=== PATIENT | female | born 1950 | race Caucasian/White ===

== ENCOUNTER 2016-12-29 15:11 | Inpatient (IN) | payer OTHER ==
--- NOTE | ~2016-12-29 | EKG ---
PATIENT: RACHEAL DUQUE UNIT #: [id number] Ventricular Rate: 167 BPM Atrial Rate: 166 BPM P-R Interval: 168 ms QRS Duration: 64 ms Q-T Interval: 272 ms QTC Calculation(Bezet): 453 ms P [place]: 80 degrees Calculated R [place]: -44 degrees Calculated T [place]: 78 degrees Diagnosis Line: Atrial fibrillation Diagnosis Line: Left axis deviation Diagnosis Line: Nonspecific ST abnormality Diagnosis Line: Abnormal ECG Diagnosis Line: No previous ECGs available Diagnosis Line: Confirmed by CARA MULLIGAN MD ([id number]) on Diagnosis Line: 01/01/2017 9:49:00 AM INTERPRETING MD: LENNOX
--- NOTE | ~2016-12-29 | EKG ---
PATIENT: RACHEAL DUQUE UNIT #: [id number] Ventricular Rate: 98 BPM Atrial Rate: 98 BPM P-R Interval: 130 ms QRS Duration: 64 ms Q-T Interval: 354 ms QTC Calculation(Bezet): 451 ms P [place]: 48 degrees Calculated R [place]: -23 degrees Calculated T [place]: 10 degrees Diagnosis Line: Normal sinus rhythm with sinus arrhythmia Diagnosis Line: Low voltage QRS Diagnosis Line: Borderline ECG Diagnosis Line: When compared with ECG of 29-DEC-2016 20:34, Diagnosis Line: (unconfirmed) Diagnosis Line: rhythm now sinus Diagnosis Line: ST no longer depressed in Anterior leads Diagnosis Line: Nonspecific T wave abnormality, improved in Diagnosis Line: Inferior leads Diagnosis Line: Nonspecific T wave abnormality no longer evident Diagnosis Line: in Lateral leads Diagnosis Line: Confirmed by CARA MULLIGAN MD ([id number]) on Diagnosis Line: 01/01/2017 9:53:25 AM INTERPRETING IWONA HIGH
--- NOTE | ~2016-12-29 | HP ---
Unit #: [id number] #: [id number] Patient: RACHEAL DUQUE [id number] [address] [place], [place] [address] [id number] E MR#: [id number] NAME: RACHELA DUQUE ROOM: Age: 66 Sex: F Admission Date: 12/29/2016 : 1950 Attending Physician: Shad Deleon M.D. Primary Care Physician: No Primary Care Physician HISTORY AND PHYSICAL CHIEF COMPLAINT Swollen painful right leg. HISTORY OF PRESENT ILLNESS The patient is a 66-year-old female with the history of a left leg DVT back in 2010, status post anticoagulation for six months and stopped for the bleeding. The patient presented to the emergency room with right lower leg extremity for three days and associated with the redness, edema and warmth. The pain is more worrisome with the movement. The patient denies any trauma or any recent travel history. The patient had a venous Doppler that showed diffuse centrally occluded DVT and is being admitted for the anticoagulation. PAST MEDICAL HISTORY History of a left leg DVT back in 2010. PAST SURGICAL HISTORY None. HOME MEDICATIONS Noncompliant with all the meds, BP meds, cholesterol meds, gabapentin, trazodone. Currently no home meds. ALLERGIES No known drug allergies. SOCIAL HISTORY Smokes half a pack per day and drinks alcohol occasionally and denies any illicit drug abuse. FAMILY HISTORY Reviewed and none. REVIEW OF SYMPTOMS Fourteen-point review of symptoms performed and only pertinent positive findings are described above, remaining are negative. PHYSICAL EXAMINATION GENERAL APPEARANCE: On examination the patient is lying on a bed not in acute distress. VITAL SIGNS: Temperature 98.2, pulse 103, respiratory rate 21, blood pressure 131/70, sating 97% at room air. HEENT: Head atraumatic/normocephalic. Pupils equal, round and reacting Unit #: [id number] #: [id number] Patient: RACHEAL DUQUE to light and accommodation. Extraocular movements are intact. NECK: Supple. LUNGS: Decreased air entry at the bases. HEART: Regular rate and rhythm. ABDOMEN: Soft, positive bowel sounds. EXTREMITIES: Right lower extremity diffuse tenderness and the edematous and the warmth and redness. NEUROLOGIC: Alert, awake, oriented. No gross focal motor deficit. DIAGNOSTIC STUDIES LABORATORY DATA: WBC 9.9, hemoglobin 11.9, hematocrit 35.9, platelets 296, glucose 91, BUN 9, creatinine 0.8, sodium 137, potassium 3.6, chloride 99, bicarb 25, calcium 8.5, albumin 2.8, AST 77, ALT 27, alkaline phosphatase 153, INR is 1. IMAGING: The venous Doppler is positive for the diffuse centrally occluded DVT. ASSESSMENT 1. Deep venous thrombosis. 2. Anemia. PLAN Plan to admit the patient to the inpatient. Patient will have anticoagulation with the Lovenox plus Coumadin and transition to Coumadin and check the alcohol and urine toxicology level and monitor the INR to keep the range between 2 and 3 and will have the case management involvement for the assistance for the Lovenox and further recommendations will follow. Dictated by Margie Gordon/sherita TD: 12/29/2016 19:29 JOB #: [id number] HISTORY AND PHYSICAL Page 1 of 1 X LIZZ VIVAS MD X HISTORY AND PHYSICAL
--- NOTE | ~2016-12-29 | CO ---
Unit #: [id number] #: [id number] Patient: RACHEAL BENTON [id number] [id number] [facility]. [place], [place] [address] [id number] I MR#: [id number] NAME: RACHEAL BENTON ROOM: 560 Age: 66 Sex: F Admission Date: 12/29/2016 : 1950 Attending Physician: Marleny Smith M.D. Consultation Date: 12/30/2016 CONSULTATION REPORT REASON FOR CONSULTATION New atrial fibrillation with rapid ventricular response. HISTORY OF PRESENT ILLNESS This is a 66-year-old white female with a history of DVT back in 2010 and had a probable IVC filter placed at that time at [facility]. The patient said that a few weeks after she was on Coumadin, she had a lower GI bleed. They put the filter in and took off her Coumadin. She also has a history of being noncompliant with her medications, nicotine and alcohol abuse. She reports that she has had medication for hypertension in the past and also for hyperlipidemia. The patient presented to the emergency room with increased swelling, pain, and redness in the right lower extremity. Doppler study showed that she does have a right DVT. The patient was given a dose of Lovenox after she was admitted in the emergency room. The patient's telemetry showed atrial fibrillation. An EKG was done to confirm it. The ER physician started her on Cardizem drip at 5 mg/hr and gave her a dose of 2.5 mg of IV Lopressor. The patient converted back to normal sinus rhythm. It was noted that also her magnesium was 1.3 and potassium 3.3 and that was supplemented. Cardiology has been consulted to assist with evaluation and management. According to the patient, she has never been told she had any heart issues. She may have had a stress test, but has never had anything recently. She never has been told she has had a stroke or heart attack. The patient denies any chest pain; pain in her neck, bilateral jaws, shoulders, arms, or elbow. She reports she does have occasional palpitation, but it only lasts a few minutes. She denies any increased lower extremity edema. Denies any nausea, vomiting, or diarrhea. She said she may have been having occasional chills, but no fever. She has a dry cough. She denies any presyncope or syncope. The patient was admitted for further evaluation. PAST MEDICAL HISTORY 1. History of DVT in 2010, has a probable IVC filter done at [facility] in 2010. 2. Hypertension. 3. Hyperlipidemia. 4. Noncompliance with medication. 5. Nicotine abuse. 6. Alcohol abuse. HOME MEDICATIONS None. ALLERGIES Unit #: [id number] #: [id number] Patient: RACHEAL BENTON No known drug allergies. SOCIAL HISTORY The patient lives in her apartment. She ambulates in her apartment without any cane or walker, but she does have for if she needs them. She continues to smoke a half to a pack of cigarettes a day, has been smoking since age 22. She drinks 2 to 3 shots of whiskey daily. No illicit drug abuse. FAMILY HISTORY Her father in an accident, and her mother is still living and has known coronary artery disease. Her siblings, she is unaware of any health problems. REVIEW OF SYSTEMS See details in HPI. PHYSICAL EXAMINATION GENERAL: Ms. Benton is a 66-year-old white female, in no acute respiratory distress. She is awake and alert. Answers most questions appropriately. VITAL SIGNS: Currently, blood pressure is 131/70 and after the Cardizem and Lopressor were given, her blood pressure dropped to 95/68, but currently blood pressure 114/64; heart rate 100; respirations 18; temperature 98.8; O2 saturations 98% on room air. NECK: Trachea midline. No thyromegaly or lymphadenopathy. Normal carotid upstrokes. No jugular venous distention. HEART: S1 and S2. Regular rate and rhythm. Soft systolic murmur in the left sternal border. LUNGS: Diminished, otherwise clear. ABDOMEN: Soft. Tender with palpating the mid epigastric area. EXTREMITIES: Pedal pulses are very weak, especially in the right. Her lower extremity from the knee down is edematous and has some cellulitis. It is painful to touch. NEUROLOGIC: No deficits. DIAGNOSTIC STUDIES LABORATORY RESULTS: Her glucose is 100, BUN 9, creatinine 0.5, eGFR is 99.5, sodium 138, potassium 3.3, chloride 101, CO2 of 25, calcium is 7.9, magnesium is 1.3, total protein 6.3, albumin 2.8, bilirubin total 1.0, AST 17, ALT is 27, alkaline phosphatase is 153. Her TSH is 4.01, free T4 is 0.91. WBCs 7.7, hemoglobin 10.6, hematocrit 32.5, and platelets are 274. Initial cardiac enzymes; CK-MB is 1.5, troponin less than 0.05. Repeat cardiac enzymes; troponin less than 0.03. Urine tox screen is negative. Urinalysis shows 1+ leukocyte esterase, positive nitrites, 1+ protein, 2.0 urobilinogen, 5 to 10 rbc's, 5 to 10 wbc's, and 4+ bacteria. Urine culture is pending. Alcohol level 145. IMAGING STUDIES: Right leg venous Doppler study showed essential occlusive DVT in the right leg. CARDIOVASCULAR STUDIES: EKG on admission showed atrial fibrillation with Unit #: [id number] #: [id number] Patient: RACHEAL BENTON rapid ventricular response, ventricular rate 167 beats per minute, left axis deviation, inferior Q-waves, and poor R-wave progression. Later EKG after converted back to normal sinus rhythm shows normal sinus rhythm with ventricular rate 98 beats per minute. Inferior infarct, age undetermined. T-wave in V1. Poor R-wave progression. IMPRESSION 1. Right leg pain. Positive for right deep venous thrombosis with a history of left deep venous thrombosis back in 2010. Had an IVC filter placed. 2. Anemia. 3. History of lower gastrointestinal bleed, on Coumadin in 2010. 4. Hypertension. 5. Hyperlipidemia. 6. Alcohol abuse. 7. Nicotine abuse. 8. Noncompliance. PLAN 1. The patient currently remains in normal sinus rhythm after IV Cardizem. We will check thyroid and evaluate. We will obtain a 2D echo to evaluate LV function and valves. Cause of atrial fibrillation could be secondary to electrolyte imbalance. Potassium and magnesium were noted and replaced. 2. As far as anticoagulation, start the patient on 1 mg/kg dose of subcu Lovenox for anticoagulation. The hospitalist has asked Hematology to follow the patient to make sure there is no bleeding disorder that would cause these clots. Discussed with the patient the need to be on heparin. The patient verbalizes understanding, but just somewhat disappointed. We will keep the patient on a low-dose beta-concepcion to maintain normal sinus rhythm. Encourage the patient to completely quit smoking and nicotine abuse. 3. Further recommendations pending. 4. Hospitalist has asked Hematology to see the patient to evaluate for any hematological cause for recurrent DVTs. Thank you very much for allowing us to assist in the care. Dictated by... Grisel Wei A.P.R.N. for Margie Portillo/alf TD: 12/31/2016 00:05 JOB #: [id number] CONSULTATION REPORT Page 1 of 1 X Grisel Wei PROFESSOR OF [employer] X CONSULTATION REPORT
--- NOTE | ~2016-12-29 | EKG ---
PATIENT: RACHEAL DUQUE UNIT #: [id number] Ventricular Rate: 102 BPM Atrial Rate: 102 BPM P-R Interval: 130 ms QRS Duration: 58 ms Q-T Interval: 344 ms QTC Calculation(Bezet): 448 ms P [place]: 52 degrees Calculated R [place]: -39 degrees Calculated T [place]: 90 degrees Diagnosis Line: Sinus tachycardia Diagnosis Line: Possible Left atrial enlargement Diagnosis Line: Left axis deviation Diagnosis Line: Low voltage QRS Diagnosis Line: Inferior infarct (cited on or before 05-JUL-2015) Diagnosis Line: Abnormal ECG Diagnosis Line: When compared with ECG of 30-DEC-2016 20:21, Diagnosis Line: (unconfirmed) Diagnosis Line: ST no longer depressed in Inferior leads Diagnosis Line: Nonspecific T wave abnormality no longer evident Diagnosis Line: in Inferior leads Diagnosis Line: Nonspecific T wave abnormality now evident in Diagnosis Line: Lateral leads Diagnosis Line: Confirmed by CARA MULLIGAN MD ([id number]) on Diagnosis Line: 01/01/2017 1:43:06 PM INTERPRETING MD: LENNOX
--- NOTE | ~2016-12-29 | DS ---
Unit #: [id number] #: [id number] Patient: RACHEAL DUQUE [id number] [address] [address] [id number] I MR#: [id number] NAME: RACHEAL DUQUE ROOM: 560 Age: 66 Sex: F Admission Date: 12/29/2016 : 1950 Discharge Date: Attending Physician: Marleny Smith M.D. Primary Care Physician: No Primary Care Physician DISCHARGE SUMMARY DISCHARGE DIAGNOSES 1. Acute right leg deep venous thrombosis. 2. Atrial fibrillation, currently in normal sinus rhythm. 3. History of gastrointestinal bleed. 4. Diarrhea, chronic. 5. Hypokalemia. 6. Smoking. 7. Moderate protein malnutrition. 8. Anemia, iron deficiency, no active bleeding. 9. Urinary tract infection. 10. Cultures negative. 11. Chronic diastolic heart failure. 12. Noncompliance. 13. Alcohol abuse. 14. Hyperlipidemia. CONSULTATIONS Dr. Nina and Dr. Howard. PROCEDURES None. DIAGNOSTIC STUDIES LABORATORY: Sodium 139, potassium 4.0, creatinine 0.9, AST 79, ALT 27, alkaline phosphatase 121, total protein 5.2, total bilirubin 0.2, albumin 2.4. INR 6.5, WBC 6.8, hemoglobin 10.3, platelets 349. Urine cultures show mixed growth. Alcohol level is 145. Urine drug screen negative. IMAGING: Ultrasound of the extremity shows diffuse essentially occlusive DVT right leg. ALLERGIES None. DISCHARGE MEDICATIONS 1. Amiodarone 200 mg p.o. daily. 2. Nicotine 21 mg transdermal daily. 3. Coumadin 1 mg p.o. daily. 4. Lopressor 12.5 mg p.o. b.i.d. 5. Multivitamin one tab daily. 6. Thiamine 100 mg daily. HOSPITALIZATION COURSE A 66-year-old admitted because of right leg swelling and pain. Unit #: [id number] #: [id number] Patient: RACHEAL DUQUE Acute right leg DVT: Etiology unclear. Patient seen by Dr. Nina. Anticoagulation workup is pending. The patient is started on Lovenox. Currently, the patient is on Coumadin. INR 6.5. Hold Coumadin today. Continue with 1 mg. The patient will have home health recheck PT and INR. Coumadin dose as per PT and INR. Atrial fibrillation: Acute. Currently, normal sinus rhythm. The patient is on amiodarone and Lopressor, rate control. History of GI bleed: Currently, no active bleeding. Anemia secondary to acute iron deficiency: No active bleeding. Urinary tract infection: Cultures negative. Patient received Rocephin. Discharge home with home health. Follow with the PCP in one week's time. Follow with Dr. Nina in two to three weeks' time. The patient will have Coumadin started on 01/05/2017. Target goal INR is 2 to 3. I discussed with Dr. Nina. Okay to discharge the patient and to follow with him. Discharge time taken is 33 minutes. Dictated by... Margie Henry/anai TD: 01/03/2017 13:20 JOB #: [id number] DISCHARGE SUMMARY Page 1 of 1 X Marleny Smith MD X DISCHARGE SUMMARY
--- NOTE | ~2016-12-29 | EKG ---
PATIENT: RACHEAL DUQUE UNIT #: [id number] Ventricular Rate: 89 BPM Atrial Rate: 89 BPM P-R Interval: 128 ms QRS Duration: 56 ms Q-T Interval: 370 ms QTC Calculation(Bezet): 450 ms P [place]: 57 degrees Calculated R [place]: -28 degrees Calculated T [place]: 11 degrees Diagnosis Line: Normal sinus rhythm Diagnosis Line: Consider prior inferior infarct by series (cited Diagnosis Line: on or before 05-JUL-2015) Diagnosis Line: Borderline ECG Diagnosis Line: When compared with ECG of 30-DEC-2016 07:42, Diagnosis Line: (unconfirmed) Diagnosis Line: No significant change was found Diagnosis Line: Confirmed by CARA MULLIGAN MD ([id number]) on Diagnosis Line: 01/01/2017 1:15:17 PM INTERPRETING MD: LENNOX
--- NOTE | ~2016-12-29 | CO ---
Unit #: [id number] #: [id number] Patient: RACHEAL DUQUE [id number] [address] [place], [place] [address] [id number] I MR#: [id number] NAME: RACHEAL DUQUE ROOM: 560 Age: 66 Sex: F Admission Date: 12/29/2016 : 1950 Attending Physician: Marleny Smith M.D. Consultation Date: 12/30/2016 CONSULTATION REPORT PRIMARY CARE PHYSICIAN Shad Deleon REASON FOR CONSULT Right-sided DVT, please evaluate. HISTORY OF PRESENT ILLNESS A 66-year-old lady who had a left-sided DVT in 2010 took warfarin for six months and had internal bleeding of which we do not have the records, but she had an IVC filter placed, and anticoagulation was discontinued, presents now with a diffuse, symptomatic right DVT and no evidence of PE. We were requested to evaluate. Today, on questioning she states that she is reluctant about warfarin. She cannot afford Lovenox. She does not want to take Eliquis or Xarelto because she cannot afford it, and our suggestion was that she definitely needs anticoagulation and either we keep her on Lovenox, or she needs to go on one of the orals with Lovenox support or go onto Xarelto or Eliquis which she states that she definitely cannot afford. PAST MEDICAL HISTORY Left-sided DVT in 2010 with IVC filter. We do not have the records. It was at [facility]. FAMILY HISTORY Very positive for DVT and PE in a son, and the son . Otherwise, no other member of the family has clots as far as she knows. SOCIAL HISTORY Smokes half a pack a day, occasional alcohol, and no drugs. ALLERGIES No known allergies. CHRONIC MEDICATIONS Multiple but she is not taking many and states that she does not have a ride around either, but she used to take cholesterol medicines, blood pressure medicines, gabapentin, and trazodone. REVIEW OF SYSTEMS Pain in her right leg, fairly severe, sometimes sharp, sometimes dull. Appetite fair. Performance status decreased. May have lost some weight but is not sure. Otherwise, eight or 10 systems are within normal limits. PHYSICAL EXAMINATION Unit #: [id number] #: [id number] Patient: RACHEAL DUQUE GENERAL: She looks much older than stated age. LYMPHATICS: No palpable nodes. LUNGS: Clear. CARDIOVASCULAR: Distant S1 and S2. ABDOMEN: Scaphoid. No organomegaly. CENTRAL NERVOUS SYSTEM: Grossly intact. PELVIC/BREASTS: Exams were not done. EXTREMITIES: Left leg normal to exam. Right leg with 2+ edema and tenderness all the way up to the thigh. DIAGNOSTIC STUDIES LABORATORY: Glucose 100, BUN 9, creatinine 0.5, sodium 138, potassium 3.3, chloride 101, CO2 of 25, calcium 7.9, magnesium 1.3, total protein 6.3, and albumin of 2.8. Pro time 10 and INR 1. Hemoglobin 10.6, hematocrit 32.5, white count 7700, and platelets 274,000. IMAGING: CT angiogram shows no evidence of clot formation. Ultrasound of the right leg shows diffuse essentially occlusive DVT in the right leg. ASSESSMENT AND PLAN So at this point, I had a long discussion with the patient who is reluctant about any anticoagulation, but I told her that this symptomatic, diffuse, extensive DVT with IVC filter is not going to go away unless we anticoagulate, and it is up to her, her choice of Lovenox, warfarin, Eliquis, Xarelto, or other orals. The cost of each was explained to her. She is reluctantly agreeing to go back on warfarin for a minimum of three months, although I believe this lady with recurrent DVT should be on anticoagulation for life if she continues to smoke. All this was discussed in detail. Then, I told her that I am going to start her on warfarin, continue the Lovenox, and we are going to check some basic labs which will include factor V Leiden, prothrombin gene mutation, lupus anticoagulant, anticardiolipin, antiphospholipid antibodies, D-dimer, and PT-INR, to tell her what other risk factors she has for clotting. She is in agreement. Will start warfarin at 5 mg p.o. daily and daily PT-INR. Dictated by... Margie Justin/rajiv TD: 12/30/2016 19:48 JOB #: [id number] CONSULTATION REPORT Page 1 of 1 X Mendoza Nina MD CONSULTATION REPORT
--- NOTE | ~2016-12-29 | US85 ---
[facility] A Service of [facility] & [facility] RADIOLOGY TEXT RESULTS PATIENT: RACHEAL DUQUE LOCATION: [facility] [address]-00 : [birth year] UNIT #: [id number] AGE: [address]: LIZZ LESTER MD SEX: F ORDER DR: [id number] [facility] [address] [place], [place] [address] [id number] I MR#: [id number] Acc #: [id number] NAME: RACHEAL DUQUE : 1950 SEX: F STUDY DATE/TIME: 12/29/2016 16:08 UNIT: [facility] ROOM: [id number] STUDY DESCRIPTION: US LE Veins Unilat or Ltd Stdy Attending Physician: Lizz Lester M.D. Ordering Physician: Shad Deleon M.D. Primary Care Physician: No Primary Care Physician MEDICAL IMAGING REPORT This report is preliminary unless electronic signature is present EXAM Right leg vein Doppler 12/29/16 INDICATIONS Pain and swelling in the right leg for the last 3 days. Prior history of DVT. FINDINGS Garcia-scale, color flow, spectral Doppler waveform analysis was performed of the right leg venous system. There is a diffuse deep venous thrombosis in the right lower extremity with the exception of one of the paired anterior tibial veins which appears patent. The majority of thrombus is occlusive. The saphenous vein is patent. IMPRESSION Diffuse essentially occlusive DVT in the right leg. Dictated by... Rohan Ballesteros Jr., M.D. THIS IS AN ELECTRONICALLY VERIFIED REPORT Rohan Ballesteros Jr., M.D. at 12/30/2016 5:54 AM BIRDIE/johnathan TD: 12/29/2016 22:44 JOB #: [id number] MEDICAL IMAGING REPORT Page 1 of 1 COPY
--- NOTE | ~2016-12-29 | CT16 ---
[facility] A Service of [facility] RADIOLOGY TEXT RESULTS PATIENT: RACHEAL DUQUE LOCATION: C5B 560-01 : 46 UNIT #: [id number] AGE: [address]: Marleny Smith MD SEX: F ORDER DR: [id number] [facility] [address] [place], [place] [address] [id number] MR#: [id number] Acc #: [id number] NAME: RACHEAL DUQUE : 1950 SEX: F STUDY DATE/TIME: 12/30/2016 10:41 UNIT: C5 ROOM: [facility] STUDY DESCRIPTION: CT Angio Chest for PE Attending Physician: Marleny Smith M.D. Ordering Physician: Skye Valdes M.D. Primary Care Physician: Primary Care Physician No MEDICAL IMAGING REPORT This report is preliminary unless electronic signature is present EXAM CT chest with contrast with CT angiography HISTORY Right leg pain and swelling for the past 3 days in a patient the previous history of DVT. Tachycardia beginning yesterday. Evaluate for pulmonary embolism. TECHNIQUE Axial imaging was obtained through the chest with contrast. 80 mL of Isovue was used. This CT exam was performed with one or more of the following radiation dose reduction techniques: automatic exposure control, adjustment of mA and/or kV according to patient size, and iterative reconstruction. FINDINGS Chest images at mediastinal window show no pulmonary artery filling defects to suggest emboli. There is no evidence of aortic dissection. No pleural or pericardial fluid is seen. Liver shows extensive fatty infiltration. The CT angiographic images are also negative for pulmonary embolism. Images at lung window show volume loss in the left lower lobe with mild pleural thickening and chronic atelectasis. There is slight elevation of the left diaphragm. There is mild linear scarring or atelectasis in the lingula and right lower lobe. No suspicious infiltrates are seen. In the right lower lobe there is a small noncalcified nodule. It measures 4 mm in diameter. Recommend comparison with any previous chest CTs if available to determine whether this nodule is new. If no previous chest [facility] A Service of [facility] RADIOLOGY TEXT RESULTS PATIENT: RACHEAL DUQUE LOCATION: C5B 560-01 : 46 UNIT #: [id number] AGE: [address]: Marleny Smith MD SEX: F ORDER DR: imaging is available for comparison, recommend followup noncontrast chest CT in 6 months to recheck this per Fleischmann Society guidelines. The patient had a abdomen and pelvis CT in 2014 but it did not include this part of the lung. IMPRESSION 1. No evidence pulmonary embolism. 2. Chronic atelectasis. Pleural thickening and volume loss in the left lower lobe. 3. Mild scarring at both bases. 4. Indeterminate 4-mm nodule right lower lobe. If there are no previous chest imaging studies available for comparison I would recommend repeat scanning of the chest without contrast in 6 months per Fleischmann Society guidelines to recheck this nodule. STAT * RESULT Dictated by... Rohan Galvin M.D. THIS IS AN ELECTRONICALLY VERIFIED REPORT Rohan Galvin M.D. at 12/30/2016 4:32 PM Veronique TD: 12/30/2016 11:07 JOB #: [id number] MEDICAL IMAGING REPORT Page 1 of 1 COPY
[2016-12-29 16:08] LABS: BASOPHIL# 0.1 X10e3 (0-0.3); BASOPHIL% 1.2 % (0-2.5); EOSINOPHIL# 0.4 X10e3 (0-0.7); EOSINOPHIL% 3.8 % (0.0-7.0); HEMATOCRIT 35.9 % (35.0-45.0); HEMOGLOBIN 11.9 gm/dL (12.0-16.0); LYMPHOCYTE# 1.6 X10e3 (1.0-3.5); LYMPHOCYTE% 16.5 % (17.0-45.0); MEAN CELL VOLUME 105.4 FL (83-96); MEAN CORPUSCULAR HEMOGLOBIN 34.8 PG (28-34); MEAN PLATELET VOLUME 7.7 FL (6.5-11.5); MONOCYTE# 0.7 X10e3 (0-1.0); MONOCYTE% 6.8 % (3.0-12.0); NEUTROPHIL# 7.1 X10e3 (1.5-7.1); NEUTROPHIL% 71.7 % (40-75); PLATELET COUNT 296 X10e3 (140-420); RED BLOOD COUNT 3.41 X10e (3.90-5.30); RED CELL DISTRIBUTION WIDTH 19.4 % (11.0-15.5); WHITE BLOOD COUNT 9.9 X10e3 (4.0-10.5)
[2016-12-29 16:09] LABS: DIFF IND YES
[2016-12-29 16:15] LABS: PARTIAL THROMBOPLASTIN TIME 23.7 SECONDS (23.5-31.3); PROTHROMBIN TIME (PATIENT) 10.1 SECONDS (9.6-11.5)
[2016-12-29 16:27] LABS: PLATELET ESTIMATE NORMAL (NORMAL); POLYCHROMASIA MOD
[2016-12-29 16:32] LABS: ALBUMIN SERUM 2.8 g/dL (3.5-5.0); BILIRUBIN, DIRECT 0.3 mg/dL (0.0-0.2); BILIRUBIN,INDIRECT 0.7 mg/dL (0.0-0.9); BUN/CREATININE RATIO 11.25; CALCIUM SERUM 8.5 mg/dL (8.4-10.2); CREATININE SERUM 0.8 mg/dL (0.6-1.4); GLOM FILT RATE Estimated 75.8 mL/min (>60); POTASSIUM 3.6 mmol/L (3.5-5.1); PROTEIN TOTAL SERUM 6.3 g/dL (6.0-8.3)
[2016-12-29] MEDS ORDERED: NO MEDICATIONS (17:26)
[2016-12-29 20:09] LABS: AMPHETAMINE NEG (NEG); BARBITURATES NEG (NEG); BENZODIAZEPINES NEG (NEG); COCAINE NEG (NEG); MARIJUANA NEG (NEG); OPIATES NEG (NEG); TRICYCLIC ANTIDEPRESSANTS NEG (NEG); U METHADONE NEG (NEG)
[2016-12-29 21:06] LABS: URINE SOURCE CLEAN CATCH
[2016-12-29 21:09] LABS: URINE APPEARANCE TURBID; URINE BLOOD NEG (NEG); URINE COLOR DK YELLOW; URINE GLUCOSE NEG (NEG); URINE KETONE TRACE (NEG); URINE LEUKOCYTE ESTERASE 1+ (NEG); URINE NITRATE POS (NEG); URINE PROTEIN 1+ (NEG); URINE SPECIFIC GRAVITY 1.023 (1.003-1.035)
[2016-12-29 21:11] LABS: CULTURE INDICATED? YES; URINE BACTERIA AUWI 4+ (NEGATIVE); URINE SQUAMOUS EPITHELIAL CELL MOD /[HPF]
[2016-12-30 00:05] LABS: CALCIUM SERUM 7.9 mg/dL (8.4-10.2); CREATININE SERUM 0.5 mg/dL (0.6-1.4); GLOM FILT RATE Estimated 99.5 mL/min (>60); MAGNESIUM 1.3 mg/dL (1.6-3.0); POTASSIUM 3.3 mmol/L (3.5-5.1)
[2016-12-30 07:19] LABS: BASOPHIL% 0.4 % (0-2.5); EOSINOPHIL# 0.4 X10e3 (0-0.7); EOSINOPHIL% 4.8 % (0.0-7.0); HEMATOCRIT 32.5 % (35.0-45.0); HEMOGLOBIN 10.6 gm/dL (12.0-16.0); LYMPHOCYTE# 1.5 X10e3 (1.0-3.5); MEAN CELL VOLUME 106.9 FL (83-96); MEAN CORPUSCULAR HEMOGLOBIN 35.1 PG (28-34); MEAN CORPUSCULAR HGB CONC 32.8 g/dL (30-36); MEAN PLATELET VOLUME 8.1 FL (6.5-11.5); MONOCYTE# 0.7 X10e3 (0-1.0); MONOCYTE% 9.5 % (3.0-12.0); NEUTROPHIL% 65.3 % (40-75); PLATELET COUNT 274 X10e3 (140-420); RED BLOOD COUNT 3.04 X10e (3.90-5.30); RED CELL DISTRIBUTION WIDTH 19.6 % (11.0-15.5); WHITE BLOOD COUNT 7.7 X10e3 (4.0-10.5)
[2016-12-30 07:21] LABS: DIFF IND NO
[2016-12-30 08:38] LABS: CK TOTAL 23 IU/L (26-140)
[2016-12-30 09:20] LABS: THYROID STIMULATING HORMONE 4.01 uIU/ml (0.34-5.60)
[2016-12-30 09:27] LABS: FREE THYROXIN (T4) 0.91 ng/dL (0.58-1.64)
[2016-12-30 19:30] LABS: CK TOTAL 25 IU/L (26-140)
[2016-12-31 10:08] LABS: HEMATOCRIT 32.2 % (35.0-45.0); HEMOGLOBIN 10.5 gm/dL (12.0-16.0); MEAN CELL VOLUME 106.2 FL (83-96); MEAN CORPUSCULAR HEMOGLOBIN 34.7 PG (28-34); MEAN CORPUSCULAR HGB CONC 32.6 g/dL (30-36); MEAN PLATELET VOLUME 8.4 FL (6.5-11.5); RED BLOOD COUNT 3.03 X10e (3.90-5.30); RED CELL DISTRIBUTION WIDTH 19.5 % (11.0-15.5); WHITE BLOOD COUNT 6.9 X10e3 (4.0-10.5)
[2016-12-31 10:14] LABS: PROTHROMBIN TIME (PATIENT) 10.9 SECONDS (9.6-11.5)
[2016-12-31 10:32] LABS: ALBUMIN SERUM 2.4 g/dL (3.5-5.0); BILIRUBIN,TOTAL 0.7 mg/dL (0.2-2.0); BUN/CREATININE RATIO 11.42; CALCIUM SERUM 8.1 mg/dL (8.4-10.2); CREATININE SERUM 0.7 mg/dL (0.6-1.4); MAGNESIUM 1.6 mg/dL (1.6-3.0); POTASSIUM 3.5 mmol/L (3.5-5.1); PROTEIN TOTAL SERUM 5.3 g/dL (6.0-8.3)
[2017-01-01 06:38] LABS: HEMATOCRIT 30.4 % (35.0-45.0); HEMOGLOBIN 9.8 gm/dL (12.0-16.0); MEAN CELL VOLUME 106.8 FL (83-96); MEAN CORPUSCULAR HEMOGLOBIN 34.5 PG (28-34); MEAN CORPUSCULAR HGB CONC 32.4 g/dL (30-36); MEAN PLATELET VOLUME 8.2 FL (6.5-11.5); RED BLOOD COUNT 2.84 X10e (3.90-5.30); RED CELL DISTRIBUTION WIDTH 19.7 % (11.0-15.5); WHITE BLOOD COUNT 6.9 X10e3 (4.0-10.5)
[2017-01-01 06:49] LABS: ALBUMIN SERUM 2.4 g/dL (3.5-5.0); BILIRUBIN,TOTAL 0.7 mg/dL (0.2-2.0); BUN/CREATININE RATIO 11.42; CALCIUM SERUM 8.5 mg/dL (8.4-10.2); CREATININE SERUM 0.7 mg/dL (0.6-1.4); PHOSPHOROUS 3.2 mg/dL (2.5-4.6); POTASSIUM 4.7 mmol/L (3.5-5.1); PROTEIN TOTAL SERUM 5.3 g/dL (6.0-8.3)
[2017-01-01 06:56] LABS: INR 1.5; PROTHROMBIN TIME (PATIENT) 15.6 SECONDS (9.6-11.5)
[2017-01-02 06:00] LABS: HEMATOCRIT 31.7 % (35.0-45.0); HEMOGLOBIN 10.2 gm/dL (12.0-16.0); MEAN CELL VOLUME 106.2 FL (83-96); MEAN CORPUSCULAR HEMOGLOBIN 34.3 PG (28-34); MEAN CORPUSCULAR HGB CONC 32.3 g/dL (30-36); RED BLOOD COUNT 2.98 X10e (3.90-5.30); RED CELL DISTRIBUTION WIDTH 19.9 % (11.0-15.5); WHITE BLOOD COUNT 6.7 X10e3 (4.0-10.5)
[2017-01-02 06:07] LABS: BUN/CREATININE RATIO 8.57; CALCIUM SERUM 8.3 mg/dL (8.4-10.2); CREATININE SERUM 0.7 mg/dL (0.6-1.4); MAGNESIUM 1.8 mg/dL (1.6-3.0)
[2017-01-02 06:08] LABS: INR 2.9
[2017-01-02 06:17] LABS: PROTHROMBIN TIME (PATIENT) 31.4 SECONDS (9.6-11.5)
[2017-01-03 06:04] LABS: HEMATOCRIT 31.3 % (35.0-45.0); HEMOGLOBIN 10.3 gm/dL (12.0-16.0); MEAN CELL VOLUME 106.9 FL (83-96); MEAN CORPUSCULAR HGB CONC 32.8 g/dL (30-36); MEAN PLATELET VOLUME 8.1 FL (6.5-11.5); RED BLOOD COUNT 2.93 X10e (3.90-5.30); RED CELL DISTRIBUTION WIDTH 19.9 % (11.0-15.5); WHITE BLOOD COUNT 6.8 X10e3 (4.0-10.5)
[2017-01-03 06:33] LABS: INR 6.5; PROTHROMBIN TIME (PATIENT) 72.8 SECONDS (9.6-11.5)
[2017-01-03 07:20] LABS: ALBUMIN SERUM 2.4 g/dL (3.5-5.0); BILIRUBIN,TOTAL 0.2 mg/dL (0.2-2.0); BUN/CREATININE RATIO 6.66; CALCIUM SERUM 8.4 mg/dL (8.4-10.2); CREATININE SERUM 0.9 mg/dL (0.6-1.4); GLOM FILT RATE Estimated 65.7 mL/min (>60); PROTEIN TOTAL SERUM 5.2 g/dL (6.0-8.3)
[2017-01-03] MEDS ORDERED: NICODERM CQ1 EAC1 TOP (13:43)
[2017-01-03] MEDS ORDERED: AMIODARONE PO (13:43)
[2017-01-03] MEDS ORDERED: LOPRESSOR PO (13:44)
[2017-01-03] MEDS ORDERED: THIAMINE HCL100 M1 PO (13:44)
[2017-01-03] MEDS ORDERED: MULTIVITAMINS1 EAC3 PO (13:45)
[2017-01-03] MEDS ORDERED: JANTOVEN1 MG PO (13:45)
[2017-01-04 21:30] LABS: CARDIOLIPIN IGG (LUPUS) <14 GPL (<=14); CARDIOLIPIN IGM (LUPUS) <12 MPL (<=12); DRVVT MIX INTERP (LUPUS) Not Indicated (()); HEXAGONAL PHASE CONF (LUPUS) Positive (Negative); IMM PTT LA MIX CORRECTED (()); INCUB PTT LA MIX CORRECTED (()); INR LUPUS 1.1 (()); PROTROMBIN TIME LUPUS 11.8 sec (9.0-11.5); PT (LA MIX STUDY) 11.8 sec (<=11.5); PTT MIX INTERP Has been added (()); PTT-LA 50 sec (<=40); PTT-LA SCREEN (LUPUS) 50 sec (<=40); THROMBIN TIME LUPUS 18 sec (13-19); dRVVT SCREEN (LUPUS) 44 sec (<=45)
== END 2017-01-03 17:37 | disposition home health service (06) | DRG 300 ==
LOC: CED 15:11 → C5B 18:48 → CEDOF 18:48 → CED 19:02 → CEDOF 12-30 07:49 → C5B 12-30 08:47
PROVIDERS: Emergency Medicine; Family Medicine; Internal Medicine; Nurse Practitioner
PROC: B32TYZZ Computerized Tomography (CT Scan) of Left Pulmonary Artery using Other Contrast (ICD-10-PCS; 2016-12-30)
PROC: B32SYZZ Computerized Tomography (CT Scan) of Right Pulmonary Artery using Other Contrast (ICD-10-PCS; 2016-12-30)
PROC: 05H433Z Insertion of Infusion Device into Left Innominate Vein, Percutaneous Approach (ICD-10-PCS; principal; 2016-12-31)
PROC: B54NZZA Ultrasonography of Left Upper Extremity Veins, Guidance (ICD-10-PCS; 2016-12-31)
PROC: B246YZZ Ultrasonography of Right and Left Heart using Other Contrast (ICD-10-PCS; 2017-01-03)
PROC: 3E0234Z Introduction of Serum, Toxoid and Vaccine into Muscle, Percutaneous Approach (ICD-10-PCS; 2017-01-03)
DX: I82.4Z1 Acute embolism and thrombosis of unspecified deep veins of right distal lower extremity (principal); E44.0 Moderate protein-calorie malnutrition; E83.42 Hypomagnesemia; I48.91 Unspecified atrial fibrillation; I10 Essential (primary) hypertension; N39.0 Urinary tract infection, site not specified; I11.0 Hypertensive heart disease with heart failure; I50.32 Chronic diastolic (congestive) heart failure; E78.5 Hyperlipidemia, unspecified; F10.10 Alcohol abuse, uncomplicated; D50.9 Iron deficiency anemia, unspecified; Z91.19 Patient's noncompliance with other medical treatment and regimen; F17.210 Nicotine dependence, cigarettes, uncomplicated; Y90.6 Blood alcohol level of 120-199 mg/100 ml; Z82.49 Family history of ischemic heart disease and other diseases of the circulatory system; Z86.718 Personal history of other venous thrombosis and embolism; K52.9 Noninfective gastroenteritis and colitis, unspecified; E87.6 Hypokalemia; Z23 Encounter for immunization
CPT/HCPCS: 36415; 71275; 80048; 80053; 80076; 80307; 81003; 81240; 81241; 82550; 83735; 84100; 84439; 84443; 84484; 85025; 85027; 85379; 85598; 85610; 85613; 85670; 85730; 86146; 86147; 86148; 87086; 90732; 93005; 93306; 93971; 97116; 97161; 97165; 97530; 99285; G0009; G0480; G8978-GP; G8979-GP; G8987-GO; G8988-GO; J0282; J0696; J1650; J3475; J3490; Q9967